=== PATIENT | female | born 1995 | race Caucasian/White ===

== ENCOUNTER 2017-08-05 18:06 | Emergency (ER) | payer OTHER ==
[~2017-08-05] VITALS: Ht 154.9 cm; Wt 89.9 kg
[2017-08-05 21:18] VITALS: BP 132/76
== END 2017-08-05 21:18 | disposition home or self-care (01) ==
LOC: ED 18:06
DX: M54.2 Cervicalgia (principal); M54.9 Dorsalgia, unspecified

== ENCOUNTER 2017-10-23 18:09 | Emergency (ER) | payer OTHER ==
[~2017-10-23] VITALS: Ht 154.9 cm; Wt 83.9 kg
[2017-10-23 21:15] LABS: BASOPHIL % 0.3 % (0-2); PLATELET COUNT 265 x10^3mcL (130-400); RED CELL DISTRIBUTION WIDTH 13.8 % (11.5-14.5)
[2017-10-23 21:55] LABS: CALCIUM 8.6 mg/dL (8.5-10.1); CARBON DIOXIDE 26.2 mmol/L (21-32); CHLORIDE SERUM 103 mmol/L (98-107); CREATININE SERUM 0.7 mg/dL (0.6-1.0); GFR1 > 60 mL/min; GLUCOSE SERUM 85 mg/dL (74-106); POTASSIUM SERUM 3.6 mmol/L (3.5-5.1); SODIUM SERUM 139 mmol/L (136-145)
[2017-10-23 21:59] LABS: ALKALINE PHOSPHATASE 67 U/L (46-116); ALT/SGPT 27 U/L (14-59); AST/SGOT 25 U/L (15-37); BILIRUBIN TOTAL 0.25 mg/dL (0.20-1.00); LIPASE 105 IU/L (73-393); TOTAL PROTEIN, SERUM 7.5 g/dL (6.4-8.2)
[2017-10-23 22:03] LABS: ALBUMIN 3.3 g/dL (3.4-5.0)
[2017-10-23 22:34] VITALS: BP 118/81
== END 2017-10-23 22:34 | disposition home or self-care (01) ==
LOC: ED 18:09
PROVIDERS: Emergency Medicine
DX: R10.9 Unspecified abdominal pain (principal); R11.10 Vomiting, unspecified; R51 Headache
CPT/HCPCS: 87804; J1885; Q0162

== ENCOUNTER 2017-12-11 20:05 | Emergency (ER) | payer OTHER ==
[2017-12-11 22:00] VITALS: BP 128/71
== END 2017-12-11 22:00 | disposition home or self-care (01) ==
LOC: ED 20:05
DX: G43.909 Migraine, unspecified, not intractable, without status migrainosus (principal)
CPT/HCPCS: J0780; J1885; J3030

== ENCOUNTER 2018-02-21 17:00 | Emergency (ER) | payer OTHER ==
[~2018-02-21] VITALS: Ht 160 cm; Wt 85.7 kg
[2018-02-21 17:22] VITALS: BP 123/72; Ht 160 cm; Wt 85.7 kg
== END 2018-02-21 18:40 | disposition home or self-care (01) ==
LOC: ED 17:00
DX: M72.2 Plantar fascial fibromatosis (principal); G43.909 Migraine, unspecified, not intractable, without status migrainosus; Z85.41 Personal history of malignant neoplasm of cervix uteri